=== PATIENT | female | born 1950 | race Caucasian/White ===

== ENCOUNTER 2020-06-23 11:02 | Inpatient (IN) | payer MEDICARE, MEDICAID ==
[~2020-06-23] VITALS: Wt 61.6 kg
[2020-06-23] MEDS ORDERED: CLARITIN 1010 MG/TAB PO (17:02)
[2020-06-23] MEDS ORDERED: DALIRESP500 MCG PO (17:03)
[2020-06-23] MEDS ORDERED: ARICEPT10 MG PO (17:04)
[2020-06-23] MEDS ORDERED: MELATONIN5 M1 PO (17:10)
[2020-06-23] MEDS ORDERED: MOBIC15 MG PO (17:11)
[2020-06-23] MEDS ORDERED: SINGULAIR 110 MG/TAB PO (17:12)
[2020-06-23] MEDS ORDERED: NORCO 325 MG-51 TAB PO ×2 (17:14→17:46)
[2020-06-23] MEDS ORDERED: NUPLAZID34 MG PO (17:14)
[2020-06-23] MEDS ORDERED: RISPERDAL 0.5M0.5 MG PO (17:17)
[2020-06-23] MEDS ORDERED: RISPERDAL 0.20.25 MG PO (17:17)
[2020-06-23] MEDS ORDERED: EFFEXOR XR37.5 MG/CA PO (17:19)
[2020-06-23] MEDS ORDERED: ZETIA 10MG TAB10 MG PO (17:20)
[2020-06-23] MEDS ORDERED: NAMENDA5 MG PO (17:21)
[2020-06-23] MEDS ORDERED: PRILOSEC 20MG20 MG PO (17:22)
[2020-06-23] MEDS ORDERED: TYLENOL 325MG325 MG PO (17:26)
[2020-06-23] MEDS ORDERED: NEURONTIN300 MG/CAP PO (17:31)
[2020-06-23] MEDS ORDERED: NEURONTIN100 MG/CAP PO (17:34)
[2020-06-23] MEDS ORDERED: REQUIP2 MG PO (17:35)
[2020-06-23] MEDS ORDERED: ARTANE 2MG2 MG PO (17:41)
[2020-06-23] MEDS ORDERED: SINEMET CR 50 M1 TER PO (17:45)
[2020-06-23] MEDS ORDERED: VOLTAREN GEL 1%1 TU TP (17:48)
[2020-06-23] MEDS ORDERED: ZOFRAN ODT4 MG PO (17:49)
[2020-06-23] MEDS ORDERED: RT SPIRIVA18 MCG IH (17:50)
[2020-06-23] MEDS ORDERED: 00186-0370-20 IH (17:51)
[2020-06-23] MEDS ORDERED: ATROVENT I0.2 MG/1 M IH (17:52)
--- NOTE | 2020-06-23 18:22 | NUR ---
Pt has advance dementia, unable to obtain information other that that sent from transfering facility,
[2020-06-23 23:09] LABS: ALBUMIN 3.4 gm/dL (3.5-5.0); BILIRUBIN,TOTAL 0.2 mg/dL (0.0-1.0); TOTAL PROTEIN 7.3 gm/dL (6.4-8.2)
[2020-06-23 23:27] LABS: BILIRUBIN,DIRECT 0.2 mg/dL (0.0-0.4)
[2020-06-23] MEDS ORDERED: SORE THROAT LOZ1 LO1 PO (23:28)
[2020-06-23] MEDS ORDERED: FENTANYL 100MCG TD (23:30)
--- NOTE | 2020-06-24 00:47 | NUR ---
Upon comming onto shift, this nurse, day shift nurse, and patient's daughter who was in room, were all needed to give patient her scheduled Rocephin. Patient agitated any time staff enters room, and becomes combative as soon as staff gets close to patient. Day shift put mits on patient to prevent patient from ripping out IV. Able to put telemetry on, but is taking telemetry off frequently during the night, along with hospital gown. Peripheral INT to right wrist. LS CTA. Respirations even and unlabored. BSAx4. Abdomen soft and non-tender. Incontinent of bladder. No edema noted. High fall risk precautions in place. Patient not allowing staff to provide any cares, and no home medications were resumed. Call placed to [facility] and updated. Order for IV Ativan now. Given per orders at 3293. Patient's home medications were resumed, but patient will not drink or eat anything at this time, stated that staff is trying to poison her. Mits in place. Continues to be paranoid and looking around seeing people/hallucinations. High fall risk precautions in place.
--- NOTE | 2020-06-24 06:30 | NUR ---
Patient has been awake throughout this shift, even after receiving IV Ativan. Moves around in bed independently. Has not tried to stand up out of the bed this shift. Mits continue to be on. Continues to be paranoid with staff going into room. Refused to eat or drink anything, stating that staff was trying to poison her. No oral medications given this shift. SERIALS LIBRARIAN aware. Patient incontinet of bladder, no bowel movement. Changed with four staff member assist. Patient not sitting still for VS to be checked this shift. Refusing SCDs. Patient has been keeping telemetry on most of the night. Resting in bed with call light within reach. High fall risk precautions in place.
--- NOTE | 2020-06-24 08:49 | NUR ---
Pt awake in her room, she is very fidgety. Is able to tell me that her birthday is [birth year], but is unaware of the month or year, or where she is. Pt states she is not in pain. Currently has mitts on to bilateral hands. Pt incontinent of urine, pericare and linen change provided. Pt fought staff while changing trying to push off. States she will take her meds but when fed a bite with applesauce patient spit out everything. Fall precautions in place.
--- NOTE | 2020-06-24 11:44 | NUR ---
Pt's IV pulled out with mitt. New IV started to LFA. Took several people to hold patient down to start IV and draw labs. Pt states she is hungry but will not allow staff to feed her. Bed alarm in place.
[2020-06-24 11:55] LABS: BASO % 0.4 % (0.0-2.0); EOS % 0.1 % (0-4.0); GRAN % 65.7 % (42.2-75.2); HEMOGLOBIN 10.1 g/dl (12.5-16.0); LYMPH # 2.1 (1.2-3.4); LYMPH % 22.7 % (20.0-51.0); MEAN CELL VOLUME 95 fl (80.0-100.0); MEAN CORPUSCULAR HEMOGLOBIN 31 pg (27.0-31.0); MEAN CORPUSCULAR HGB CONC 32 g/dl (33.0-37.0); MEAN PLATELET VOLUME 9.4 fl (7.4-10.4); MONO % 10.4 % (1.7-9.3); PLATELET COUNT 366 K/mm3 (130-400); RED BLOOD COUNT 3.31 M/mm3 (4.10-5.30); REDCELL DISTRIBUTION WIDTH-CV 14.6 % (11.5-14.5)
[2020-06-24 11:58] LABS: HEMATOCRIT 31.3 % (37.0-47.0)
[2020-06-24 12:10] LABS: ALBUMIN 3.6 gm/dL (3.5-5.0); BILIRUBIN,TOTAL 0.4 mg/dL (0.0-1.0); CALCIUM 8.9 mg/dL (8.4-10.2); CREATININE, serum 0.43 (0.52-1.25); TOTAL PROTEIN 7.6 gm/dL (6.4-8.2)
[2020-06-24 12:26] LABS: TROPONIN-I 0.04 ng/mL (0.000-0.035)
--- NOTE | 2020-06-24 12:51 | NUR ---
Mitt taken off for patient to eat, she drank the rest of her ensure but did not eat anything else. Continues to refuse staffs help.
--- NOTE | 2020-06-24 13:31 | NUR ---
Traveling Secretary attended clinical rounds with the team. The patient is confused. Per chart the patient resides at [facility] in [place]. SRINIVASAN contacted Rosemary with [facility] and she confirms the patient does reside at [facility]. They are able to accept over the weekend since the patient is established there. SRINIVASAN inquired about DPOA-HC. Rosemary reports they do have advanced directives on file. She will fax a copy. SRINIVASAN faxed updates to Rosemary. SRINIVASAN contacted the patient's daughter Eulalia Rader #[phone] to complete intake. She confirms the patient lives at [facility] and will return there at discharge. The patient has a wheelchair and receives assistance with ADLs. The patient's PCP is Dr. Aysha Murcia and [facility] takes care of the patient's medications. *Discharge disposition: [facility] in [place]
--- NOTE | 2020-06-24 17:58 | NUR ---
Pt was restless all day, able to talk with staff but not follow a coherent conversation. She did have one loose bowel movement and two episodes of emesis. JERMAINE Davison notified. Pt did not eat a meal, had a couple of bites from each meal. Continued to be combative, attempted to bite staff. Mitts in place. Fall precautions in place.
--- NOTE | 2020-06-24 21:00 | NUR ---
Initial shift assessment done- confused-constanly moving in the bed, lifting arms, swinging arms, trying to get out of bed, mitts on bilaterally, sitter at bedside at all times- refusing vitals- refusing any po meds-- tried to get her to drink something but refuses- Was able to put Tele on at this time.
[2020-06-24 22:36] VITALS: PULSE 94; TEMP 97.4
--- NOTE | 2020-06-24 23:15 | NUR ---
Renetta LARIOS called with patients condition- remains constantly moving- trying to get up- sitting at edge of bed- refusing to lay down- unable to get vitals- not taking p.o,,,impulsive, was able to change patient with 2-3 assists for incontinence of urine. Renetta did give a one time order for additional Ativan IV--
[2020-06-25 01:30] VITALS: BP 127/90; PULSE 80
[2020-06-25 04:23] VITALS: BP 144/92; PULSE 92
--- NOTE | 2020-06-25 06:00 | NUR ---
No changes- pt agitated/confused- trying to get up,,was given Ativan IV x4 this shift,, Sitter at bedside all shift, mitts on also- were taken off for just a few minutes every couple hours- Tele on. Did not sleep more than 5 minutes at a time.
[2020-06-25 07:30] VITALS: BP 125/83; PULSE 98; TEMP 97.7
[2020-06-25 08:30] LABS: HEMOGLOBIN 11.4 g/dl (12.5-16.0); MEAN CELL VOLUME 92 fl (80.0-100.0); MEAN CORPUSCULAR HEMOGLOBIN 30 pg (27.0-31.0); MEAN CORPUSCULAR HGB CONC 33 g/dl (33.0-37.0); MEAN PLATELET VOLUME 10.3 fl (7.4-10.4); PLATELET COUNT 345 K/mm3 (130-400); REDCELL DISTRIBUTION WIDTH-CV 15.2 % (11.5-14.5)
[2020-06-25 08:38] LABS: HEMATOCRIT 35.1 % (37.0-47.0)
[2020-06-25 08:51] LABS: CALCIUM 9.4 mg/dL (8.4-10.2); CREATININE, serum 0.5 (0.52-1.25); POTASSIUM 3.4 mmol/L (3.4-5.0)
--- NOTE | 2020-06-25 08:54 | NUR ---
Simonizer attended clinical rounds with the team. The patient is currently wearing mitts. SRINIVASAN faxed updates to Rosemary with [facility]. SRINIVASAN contacted Rosemary with [facility] to follow up regarding updates and DPOA-HC, left message.
--- NOTE | 2020-06-25 09:00 | NUR ---
Shift assessment complete. Pt alert, oriented to self only. Continues to be agitated and refuses many cares. Was agreeable to taking pills crushed in applesauce this morning. PERRLA, muscle strength equal bilaterally, follows commands. Heart RRR. Lungs CTA. Reports needing to urinate every 5-10 minutes, bladder scanned w/no residual. Hospitalist notified of urinary frequency. Beginning to get drowsy, encouraged to take a nap. Refused breakfast. Denies needs. Sitter at bedside.
[2020-06-25 09:10] LABS: BAND 2 % (0-10); LYMPHOCYTE 24 % (20.0-51.0); NEUTROPHILS 63 % (42.0-75.2); PLATELET ESTIMATE NORMAL (NORMAL)
[2020-06-25 14:50] VITALS: BP 154/125; PULSE 67; TEMP 97.4
[2020-06-25 16:31] VITALS: BP 100/86; PULSE 121; TEMP 97.4
[2020-06-25 20:00] VITALS: BP 128/68; PULSE 98
--- NOTE | 2020-06-25 20:00 | NUR ---
Report received, assumed care for awake overnight monitor. Assessment complete. VS stable. Very confused/agitated/combative/using profanity. Denies pain/nausea/shortness of breath. INT to left forearm flushes without difficulty. Did take HS pills crushed in apple sauce. Denies current needs. Call light in reach/bed alarm on/sitter at bedside. Will continue to monitor.
--- NOTE | 2020-06-25 22:30 | NUR ---
Notified by PCT sitter that patient had pulled out INT to left forearm. Unable to place at this time as patient is combative/agitated. Will re-attempt at a later time.
[2020-06-26] VITALS: BP 138/78; PULSE 102
--- NOTE | 2020-06-26 05:22 | NUR ---
Has been very un-cooperative this shift. Agitated/combative most of this shift. Refused vitals. Did take medications crushed in apple sauce. Pulled out IV earlier in shift. Attempt made to restart but remained combative/agitated. Notified JERMAINE Cobb and states okay to leave out for now. Sitter remains at bedside. Will continue to monitor.
--- NOTE | 2020-06-26 07:00 | NUR ---
Pt resting in bed. Pt only oriented to self. Pt is on RA. Will continue to monitor.
--- NOTE | 2020-06-26 07:25 | NUR ---
[facility] lab techs attempted am labs but unsuccesful. The next general labor doesnt arrive until 1300. Will notify physician on rounds. PT also does not have IV access at this time. It was accidentally removed over night and multiple attempts to restart. Night Hospitalist was notified by night RN.
[2020-06-26 07:58] VITALS: BP 154/85; PULSE 98; TEMP 98.2
--- NOTE | 2020-06-26 09:00 | NUR ---
Pt complaining of nausea. Pt has had dry heaves and then vommited a little yellow bile. Milady DEAN notified when on rounds.
--- NOTE | 2020-06-26 10:45 | NUR ---
PT IS ORIENTED TO NAME, BIRTHDAY AND PARTIALLY TO SITUATION. PT WHEELED AROUND IN THE HALLS PER PT REQUESTS. PT'S LINENS CHANGED. PT BACK TO BED TO REST.
[2020-06-26 12:02] VITALS: BP 143/70; PULSE 92; TEMP 98.1
[2020-06-26 14:26] LABS: HEMOGLOBIN 11.6 g/dl (12.5-16.0); MEAN CELL VOLUME 92 fl (80.0-100.0); MEAN CORPUSCULAR HEMOGLOBIN 30 pg (27.0-31.0); MEAN CORPUSCULAR HGB CONC 32 g/dl (33.0-37.0); MEAN PLATELET VOLUME 9.1 fl (7.4-10.4); PLATELET COUNT 390 K/mm3 (130-400); REDCELL DISTRIBUTION WIDTH-CV 14.6 % (11.5-14.5)
[2020-06-26 14:27] LABS: HEMATOCRIT 35.8 % (37.0-47.0)
[2020-06-26 14:31] LABS: CREATININE, serum 0.43 (0.52-1.25)
[2020-06-26 14:36] LABS: POTASSIUM 2.8 mmol/L (3.4-5.0)
--- NOTE | 2020-06-26 14:37 | NUR ---
Milady DEAN notified of K level of 2.8. Orders received.
[2020-06-26 14:48] LABS: MAGNESIUM 1.8 mg/dL (1.6-2.3)
--- NOTE | 2020-06-26 15:38 | NUR ---
Flame Brazing Machine Operator received DPOA- paperwork for patient and placed it in patient's chart. SW also faxed clinical updates to [facility].
[2020-06-26 16:49] VITALS: BP 150/83; PULSE 89; TEMP 98.2
--- NOTE | 2020-06-26 20:00 | NUR ---
Report received, assumed care for shift mgr. Assessment complete. VS stable. Partially oriented but much more cooperative compared to last shift mgr. Took HS meds crushed in applesauce. Tolerated well. C/O pain to bilat knees and bilat arms. Multiple areas of bruising noted. Tylenol given per order. Denies current questions/concerns. Call light in reach/bed alarm on. Will monitor.
[2020-06-26 20:08] VITALS: BP 127/56; PULSE 82; TEMP 98.8
[2020-06-26 23:19] VITALS: BP 140/84; PULSE 114; TEMP 98.8
--- NOTE | 2020-06-26 23:20 | NUR ---
Potassium remains low at 3.1 post protocol initiation. New orders placed per protocol. Is not tolerating PO very well. Very slow to take in even with mixing it with applesauce/pudding/ice cream. Will continue to encourage intake of crushed Klor-Con as refuses to try effervescent.
[2020-06-27] VITALS (7 sets, daily range): BP systolic 126–148; BP diastolic 72–86; PULSE 80–95; TEMP 98.5–99.6
--- NOTE | 2020-06-27 02:54 | NUR ---
Pt still refusing to take PO potassium. Did take one tab in ice cream. Attempted 2nd dose crushed in apple sauce/pudding/ice cream/cut in half with juice. Gets very agitated and yells at staff. Did discuss with JERMAINE Cobb-who also attempted to convince patient to take with no success. This nurse will continue to attempt for the rest of this shift. Currently has no IV access-refusing IV restart and is a hard stick and swats at staff when trying to discuss.
--- NOTE | 2020-06-27 03:20 | NUR ---
Was able to convince patient to take 0130 dose of potassium. Will retime next dose for 0530-2 hours post last dose.
--- NOTE | 2020-06-27 05:30 | NUR ---
Finally able to convince to take last dose of potassium with assistance of ANJEL Oliver. Last dose was given late due to not being compliant-was taken at 0530. Denies any c/o at this time.
[2020-06-27 06:30] LABS: BASO % 0.5 % (0.0-2.0); EOS % 0.2 % (0-4.0); GRAN # 5.1 (1.4-6.5); GRAN % 57.9 % (42.2-75.2); LYMPH # 2.4 (1.2-3.4); LYMPH % 27.2 % (20.0-51.0); MEAN CELL VOLUME 94 fl (80.0-100.0); MEAN CORPUSCULAR HEMOGLOBIN 30 pg (27.0-31.0); MEAN CORPUSCULAR HGB CONC 32 g/dl (33.0-37.0); MEAN PLATELET VOLUME 9.3 fl (7.4-10.4); MONO # 1.2 (0.1-0.6); PLATELET COUNT 373 K/mm3 (130-400); RED BLOOD COUNT 3.72 M/mm3 (4.10-5.30); REDCELL DISTRIBUTION WIDTH-CV 14.6 % (11.5-14.5)
[2020-06-27 06:36] LABS: HEMATOCRIT 34.8 % (37.0-47.0)
[2020-06-27 06:40] LABS: CALCIUM 8.8 mg/dL (8.4-10.2); CREATININE, serum 0.43 (0.52-1.25); POTASSIUM 3.5 mmol/L (3.4-5.0)
--- NOTE | 2020-06-27 09:09 | NUR ---
Pt assessment complete. Pt is laying in bed upon entry, she is alert but only oriented to person only. She is aware that she is in [place], but does not know where. She is cooperative with cares, only agreed to take a few bites of pudding with meds. Pt has agreed to try again later. Reports her stomach is better, states she did not feel well the other day. She did not eat any breakfast. Pt refusing PT at this time. States her knee is hurting. No needs at this time. Fall precautions in place.
--- NOTE | 2020-06-27 17:22 | NUR ---
Pt rested in the bed and chair through the day. Did not eat much. Small sips of liquids. Did have one uncontinent BM. Much more alert and conversive. Cooperative with cares and medications. POC discussed with her, fall precautions in place.
--- NOTE | 2020-06-27 20:10 | NUR ---
PT AWAKE, ORIENTED TO SELF AND TIME. HAS NO IV SITE. TAKES HS MEDS WITHOUT PROBLEM. COOPERATIVE WITH STAFF. BED ALARM ON, WEARING DEPENDS.
--- NOTE | 2020-06-27 21:20 | NUR ---
ASSISTED TO BATHROOM, HAS SOFT BM. ZULEYKA CARES GIVEN AND ASSISTED BACK TO BED.
[2020-06-28 04:01] VITALS: BP 135/77; PULSE 83; TEMP 98.7
--- NOTE | 2020-06-28 05:22 | NUR ---
RESTING WELL. HAS NOT BEEN IMPULSIVE WITH ACTIVITY.
[2020-06-28 07:37] VITALS: BP 139/77; PULSE 77; TEMP 98.7
--- NOTE | 2020-06-28 08:20 | NUR ---
Shift assessment complete. Sitting on side of bed attempting to eat breakfast. Reports nausea and lack of appetite along w/abdominal and lower back pain. Hospitalist notified. Zofran given per orders and scheduled tylenol given. Kpad placed to right knee for pain. Heart rhythm irregular, rate WNL. Lungs CTA. Alert, partially oriented. Denies needs currently. Call light in reach and bed alarm on.
[2020-06-28] MEDS ORDERED: BLUE-EMU LIDOC1 EACH TP (08:34)
[2020-06-28] MEDS ORDERED: MACROBID 1100 MG/CAP PO (08:35)
[2020-06-28 09:28] LABS: BASO % 0.4 % (0.0-2.0); EOS % 0.3 % (0-4.0); GRAN # 6.3 (1.4-6.5); GRAN % 66.5 % (42.2-75.2); HEMATOCRIT 36.4 % (37.0-47.0); HEMOGLOBIN 11.7 g/dl (12.5-16.0); MEAN CELL VOLUME 92 fl (80.0-100.0); MEAN CORPUSCULAR HEMOGLOBIN 29 pg (27.0-31.0); MEAN CORPUSCULAR HGB CONC 32 g/dl (33.0-37.0); MEAN PLATELET VOLUME 9.3 fl (7.4-10.4); MONO # 1.1 (0.1-0.6); MONO % 11.5 % (1.7-9.3); PLATELET COUNT 360 K/mm3 (130-400); RED BLOOD COUNT 3.98 M/mm3 (4.10-5.30); REDCELL DISTRIBUTION WIDTH-CV 14.5 % (11.5-14.5)
[2020-06-28 09:33] LABS: ALBUMIN 3.7 gm/dL (3.5-5.0); BILIRUBIN,TOTAL 0.6 mg/dL (0.0-1.0); CREATININE, serum 0.45 (0.52-1.25); POTASSIUM 4.3 mmol/L (3.4-5.0); TOTAL PROTEIN 7.7 gm/dL (6.4-8.2)
--- NOTE | 2020-06-28 09:38 | NUR ---
Cash Applications Manager faxed updates to Rosemary at [facility]. A Covid-19 test ordered.
[2020-06-28 11:21] VITALS: BP 146/71; PULSE 79; TEMP 98.5
--- NOTE | 2020-06-28 15:50 | NUR ---
CT came to product picker pt, when showing them her IV site noticed IV had been pulled out, tip intact. Notified hospitalist of difficulty keeping/starting IVs for this pt, requested one more attempt be tried and if unsuccessful, CT could be done w/o contrast. Aysha CUEVAS w/successful IV attempt to left hand. CT notified that pt now has IV access.
--- NOTE | 2020-06-28 16:40 | NUR ---
Pt back in room [address] This RN notified by CT that no contrast was used due to no IV access. IV to left hand intact and flushed well at this time.
[2020-06-28 17:00] VITALS: BP 134/75; PULSE 79; TEMP 98.2
[2020-06-28 19:32] VITALS: BP 148/84; PULSE 79; TEMP 98.2
[2020-06-29 00:02] VITALS: BP 131/68; PULSE 78; TEMP 98
--- NOTE | 2020-06-29 01:06 | NUR ---
PT SLEEPING IN BED AROUSABLE, 2100 MEDICATIONS NOT GIVEN, PT WAS VERY TIRED AND DROWSY, NURSE BELIEVES PT WILL NOT BE ABLE TO SAFELY SWALLOW MEDICATIONS. NURSE WILL CONTINUE TO MONITOR PT. CALL LIGHT WITHIN REACH.
[2020-06-29 04:13] VITALS: BP 132/64; PULSE 94; TEMP 98.5
--- NOTE | 2020-06-29 05:40 | NUR ---
PT HAD UNEVENTFUL NIGHT. SLEPT MAJORITY OF THE NIGHT.PT EXPRESSES NO ADDITIONAL NEEDS AT THIS TIME. CALL LIGHT WITHIN REACH.
[2020-06-29 08:11] VITALS: BP 129/60; PULSE 74; TEMP 98.4
[2020-06-29 12:00] VITALS: BP 148/79; PULSE 100; TEMP 98.8
--- NOTE | 2020-06-29 12:46 | NUR ---
The patient to tentatively discharge today, 06/29 back to [facility] for LTC. The patient to be transported at 1400. SW attempted to contact the patient's daughter to provide an update, left message. The team was in agreeance with the above plan. SW faxed discharge orders. There are no additional needs at this time.
--- NOTE | 2020-06-29 14:40 | NUR ---
Discharge paperwork given to [facility] staff. Assisted in getting pt dressed and into wheelchair. IV to left hand removed, tip intact. Pt escorted off unit by [facility] staff w/all belongings. Report called to nurse at [facility] and all questions answered.
== END 2020-06-29 14:50 | DRG 689 ==
LOC: MEDICAL 14:00
PROVIDERS: Physician Assistant; ADMIT Hospitalist
DX: N39.0 Urinary tract infection, site not specified (principal); G93.41 Metabolic encephalopathy; F10.27 Alcohol dependence with alcohol-induced persisting dementia; B96.20 Unspecified Escherichia coli [E. coli] as the cause of diseases classified elsewhere; R11.0 Nausea; R10.10 Upper abdominal pain, unspecified; R77.8 Other specified abnormalities of plasma proteins; D53.9 Nutritional anemia, unspecified; E87.6 Hypokalemia; Z66 Do not resuscitate; Z20.822 Contact with and (suspected) exposure to COVID-19; J44.9 Chronic obstructive pulmonary disease, unspecified; E78.5 Hyperlipidemia, unspecified; F32.9 Major depressive disorder, single episode, unspecified; F29 Unspecified psychosis not due to a substance or known physiological condition; K21.9 Gastro-esophageal reflux disease without esophagitis; M17.0 Bilateral primary osteoarthritis of knee; M47.9 Spondylosis, unspecified; I50.9 Heart failure, unspecified; J84.89 Other specified interstitial pulmonary diseases; G20 Parkinson's disease; G62.1 Alcoholic polyneuropathy; Z86.16 Personal history of COVID-19
CPT/HCPCS: 99223-AI; 99231-AI; 99232-AI; C9113; J0696; J1650; J2060